=== PATIENT | male | born 1980 | race Caucasian/White ===

== ENCOUNTER → 2016-10-16 | Outpatient (CLI) | payer OTHER ==
[~2016-10-16] MED LIST: AMOXICILLIN500 MG PO; AUGMENTIN 875 M1 TAB PO; CLARITIN10 MG PO; FLEXERIL5 MG PO; HYDROCODONE BIT1 T11 PO; MEDROL DOSEPAK4 MG PO; MOTRIN800 MG PO; PROVENTIL0.09 MG/AC IH; REGLAN10 M1 PO; SEPTRA DS 800 M1 TAB PO; TRAMADOL HCL50 MG PO; VICODIN ES 7501 TAB PO
== END | disposition home or self-care (01) ==
LOC: US 10:00
DX: K76.0 Fatty (change of) liver, not elsewhere classified (principal); K82.4 Cholesterolosis of gallbladder

== ENCOUNTER 2018-08-18 12:22 | Emergency (ER) | payer SELFPAY ==
[~2018-08-18] VITALS: Wt 90.7 kg
[2018-08-18] MEDS ORDERED: Motrin,Rufen800 MG PO (14:36)
== END 2018-08-18 14:41 | disposition home or self-care (01) ==
LOC: ED 12:22
DX: S62.616A Displaced fracture of proximal phalanx of right little finger, initial encounter for closed fracture (principal); Z88.8 Allergy status to other drugs, medicaments and biological substances; Y08.89XA Assault by other specified means, initial encounter; Y93.89 Activity, other specified; Y92.89 Other specified places as the place of occurrence of the external cause; Y99.8 Other external cause status

== ENCOUNTER 2019-04-25 15:07 | Emergency (ER) | payer SELFPAY ==
[~2019-04-25] VITALS: Ht 182.8 cm; Wt 88.5 kg
[~2019-04-25 15:07] MED LIST changes: +Motrin,Rufen800 MG PO
[2019-04-25] MEDS ORDERED: SEPTDS PO (16:19)
[2019-04-25] MEDS ORDERED: Motrin,Rufen800 MG PO (16:21)
== END 2019-04-25 16:51 | disposition home or self-care (01) ==
LOC: ED 15:07
DX: L02.01 Cutaneous abscess of face (principal); R42 Dizziness and giddiness; Z88.8 Allergy status to other drugs, medicaments and biological substances; Z79.899 Other long term (current) drug therapy

== ENCOUNTER 2020-05-28 15:48 | Emergency (ER) | payer OTHER ==
[~2020-05-28] VITALS: Ht 180.3 cm; Wt 88.0 kg
[~2020-05-28 15:48] MED LIST changes: +SEPTDS PO
[2020-05-28] MEDS ORDERED: VISTARIL25 MG PO (16:25)
[2020-05-28] MEDS ORDERED: ELIMITE 5%60 GM T (16:25)
== END 2020-05-28 16:21 | disposition home or self-care (01) ==
LOC: ED 15:48
DX: B86 Scabies (principal); Z88.8 Allergy status to other drugs, medicaments and biological substances; Z98.890 Other specified postprocedural states

== ENCOUNTER 2021-05-18 08:04 | Emergency (ER) | payer OTHER ==
[~2021-05-18] VITALS: Wt 86.2 kg
[~2021-05-18 08:04] MED LIST changes: +ELIMITE 5%60 GM T; +VISTARIL25 MG PO
[2021-05-18 08:36] LABS: BASO % 0.3 % (0.0-1.0); EOS # 0.2 10*3/uL (0.0-0.4); EOS % 3.4 % (1.0-4.0); HEMATOCRIT 43.3 % (42.0-52.0); LYMPH # 1.8 10*3/uL (1.3-4.4); LYMPH % 26.1 % (27.0-41.0); MEAN CELL VOLUME 86.3 fl (80.0-94.0); MEAN CORPUSCULAR HGB 28.3 pg (27.0-31.0); MEAN CORPUSCULAR HGB CONC 32.8 g/dl (33.0-37.0); MEAN PLATELET VOLUME 10.1 fl (9.6-12.3); MONO # 0.5 10*3/uL (0.1-1.0); MONO % 7.1 % (3.0-9.0); NEUT # 4.3 10*3/uL (2.3-7.9); NEUT % 62.8 % (47.0-73.0); PLATELET COUNT AUTOMATED 283 10*3/uL (130-400); RED BLOOD COUNT 5.02 10*6/uL (4.50-5.90); RED CELL DISTRI WIDTH 12.4 % (0-14.5); WHITE BLOOD COUNT 6.8 10*3/uL (4.8-10.8)
[2021-05-18 08:53] LABS: BUN 19 mg/dl (7-24); CHLORIDE 107 mmol/L (98-107); CREATININE 1.01 mg/dL (0.70-1.30); SODIUM 140 mmol/L (136-145)
[2021-05-18] MEDS ORDERED: NYSTATIN CREAM15 GM T (11:05)
[2021-05-18] MEDS ORDERED: PREDNISONE50 MG PO (11:05)
== END 2021-05-18 12:15 | disposition home or self-care (01) ==
LOC: ED 08:04
PROVIDERS: Internal Medicine
DX: L08.9 Local infection of the skin and subcutaneous tissue, unspecified (principal)

== ENCOUNTER 2022-02-10 17:29 | Emergency (ER) | payer MEDICAID ==
[~2022-02-10] VITALS: Wt 83.9 kg
[~2022-02-10 17:29] MED LIST changes: +NYSTATIN CREAM15 GM T; +PREDNISONE50 MG PO
[2022-02-10 18:07] LABS: BASO % 0.3 % (0.0-1.0); EOS # 0.1 10*3/uL (0.0-0.4); EOS % 0.8 % (1.0-4.0); LYMPH # 2.1 10*3/uL (1.3-4.4); LYMPH % 20.9 % (27.0-41.0); MEAN CELL VOLUME 87.7 fl (80.0-94.0); MEAN CORPUSCULAR HGB 29.2 pg (27.0-31.0); MEAN CORPUSCULAR HGB CONC 33.3 g/dl (33.0-37.0); MEAN PLATELET VOLUME 9.9 fl (9.6-12.3); MONO # 0.9 10*3/uL (0.1-1.0); MONO % 9.1 % (3.0-9.0); NEUT # 6.8 10*3/uL (2.3-7.9); NEUT % 68.6 % (47.0-73.0); PLATELET COUNT AUTOMATED 270 10*3/uL (130-400); RED BLOOD COUNT 5.13 10*6/uL (4.50-5.90); RED CELL DISTRI WIDTH 12.7 % (0-14.5); WHITE BLOOD COUNT 9.9 10*3/uL (4.8-10.8)
[2022-02-10 18:22] LABS: ALKALINE PHOSPHATASE 84 U/L (45-117); BUN 16 mg/dl (7-24); CHLORIDE 102 mmol/L (98-107); CPK 206 U/L (39-308); CREATININE 1.08 mg/dL (0.70-1.30); POTASSIUM 3.8 mmol/L (3.5-5.1); SGPT/ALT 16 U/L (12-78); SODIUM 138 mmol/L (136-145); TOTAL PROTEIN 8.2 gm/dL (6.4-8.2)
[2022-02-10 18:25] LABS: ETHYL ALCOHOL < 3.0 mg/dl (<3)
[2022-02-10 22:45] LABS: BILIRUBIN Negative (Negative); BLOOD Negative (Negative); CLARITY Clear (Clear); COLOR Yellow (Yellow); GLUCOSE Negative (Negative); KETONE Negative (Negative); LEUKO ESTERASE Negative (Negative); NITRITE Negative (Negative); SPECIFIC GRAVITY >= 1.030 (1.001-1.030)
[2022-02-10 22:53] LABS: URINE AMPHETAMINES > 1000 (1000ng/ml); URINE BARBITURATES < 200 (200ng/ml); URINE BENZODIAZEPINES < 200 (200ng/ml); URINE CANNABINOIDS (THC) < 50 (50ng/ml); URINE COCAINE < 300 (300ng/ml); URINE METHADONE < 300 (300ng/ml); URINE OPIATES < 300 (300ng/ml)
[2022-02-10 22:58] LABS: URINE PHENCYCLIDINE < 25 (25ng/ml)
[2022-02-10 23:07] LABS: MUCOUS 1+; RBC 0-2 rbc/hpf (0-2); WBC 0-2 wbc/hpf (0-5)
== END 2022-02-11 04:00 | disposition home or self-care (01) ==
LOC: ED 17:29
PROVIDERS: Emergency Medicine
DX: F29 Unspecified psychosis not due to a substance or known physiological condition (principal); Z20.822 Contact with and (suspected) exposure to COVID-19; F15.90 Other stimulant use, unspecified, uncomplicated; Z88.8 Allergy status to other drugs, medicaments and biological substances; Z90.49 Acquired absence of other specified parts of digestive tract; Z90.89 Acquired absence of other organs

== ENCOUNTER 2022-07-14 15:08 | Emergency (ER) | payer SELFPAY ==
[~2022-07-14] VITALS: Wt 99.3 kg
== END 2022-07-14 16:28 ==
LOC: ED 15:08
DX: S92.414A Nondisplaced fracture of proximal phalanx of right great toe, initial encounter for closed fracture (principal); Z88.6 Allergy status to analgesic agent; Z90.49 Acquired absence of other specified parts of digestive tract; Z90.89 Acquired absence of other organs; F17.200 Nicotine dependence, unspecified, uncomplicated; W22.8XXA Striking against or struck by other objects, initial encounter; Y93.89 Activity, other specified; Y92.89 Other specified places as the place of occurrence of the external cause; Y99.8 Other external cause status